=== PATIENT | female | born 1950 | race Two or more races ===

== ENCOUNTER 2017-08-17 09:48 | Outpatient (CLI) | payer OTHER | END 2017-08-17 10:27 | disposition home or self-care (01) | LOC: RAD 501 09:48 | DX: J45.21 Mild intermittent asthma with (acute) exacerbation (principal); R05 Cough ==

== ENCOUNTER 2017-08-20 11:39 | Emergency (ER) | payer OTHER ==
[~2017-08-20] VITALS: Ht 157.5 cm; Wt 74.8 kg
[2017-08-20] MEDS ORDERED: NORVASC5 MG PO (11:55)
[2017-08-20] MEDS ORDERED: MEDROLPACK PO (12:44)
[2017-08-20] MEDS ORDERED: HYDROCODONE-CHLO5 ML PO (12:44)
== END 2017-08-20 13:33 | disposition home or self-care (01) ==
LOC: ER 11:39
DX: R05 Cough (principal)